=== PATIENT | female | born 1975 | race Caucasian/White ===

== ENCOUNTER 2016-05-05 16:49 | Inpatient (IN) | payer OTHER ==
[2016-05-05] MEDS ORDERED: Dinoprostone* 10 MG VAG.SUPP VAGINAL ONE (18:00)
[2016-05-06] MEDS ORDERED: Oxytocin in LR* 20 UNITS/1,000 ML BAG IVPB SCH (10:00)
[2016-05-06 10:44] LABS: Hematocrit 37 % (35-47); Hemoglobin 12.8 g/dl (12.0-16.0); Mean Corpuscular HGB Conc 35 g/dl (31-36); Mean Corpuscular Hemoglobin 34 pg (27-31); Mean Corpuscular Volume 97 fL (80-97); Mean Platelet Volume 8 um3 (7.4-10.4); Red Cell Distribution Width 14 % (10.5-15); White Blood Count 5.9 10^3/ul (3.5-10.8)
--- NOTE | 2016-05-06 15:58 | PTEDU ---
Patient Name: ABBY MONTERO DAVE MONTEROER selected video: Never Ever Shake a Baby to view on 05/06/2016 at 3:57:26 PM [id number]
[2016-05-07] MEDS ORDERED: fentaNYL* 50 MCG/ML 2 ML VIAL (100 MCG VIAL) ONE ×4 (05:41→17:35)
[2016-05-07] MEDS ORDERED: OBEPIDURAL* 250 ML ONE (05:42)
[2016-05-07] MEDS ORDERED: Sodium Citrate/Citric Acid* 15 ML UDC PO PRN (06:32)
[2016-05-07] MEDS ORDERED: Famotidine TAB* 20 MG PO PRN (06:32)
[2016-05-07] MEDS ORDERED: Phenylephrine IV* 40 MCG/ML 10 ML SYRINGE IV PUSH PRN ×2 (06:32)
[2016-05-07] MEDS ORDERED: OBEPIDURAL* 250 ML EPIDURAL SCH (07:00)
[2016-05-07] MEDS ORDERED: Bupivacaine 0.25% SDV* 30 ML ONE (12:10)
[2016-05-07] MEDS ORDERED: HYDROmorphone* 1 MG/ML 1 ML SYR ONE (12:11)
[2016-05-07] MEDS ORDERED: Ondansetron INJ* 2 MG/ML VIAL ONE (14:13)
[2016-05-07] MEDS: Ondansetron INJ* 2 MG/ML VIAL IV ONE ×2 (14:14→18:22)
[2016-05-07] MEDS ORDERED: D5LR 1000 ML BAG* 1,000 ML IV SCH (17:00)
[2016-05-07] MEDS ORDERED: Ondansetron INJ* 2 MG/ML VIAL IV ONE (18:20)
[2016-05-08] MEDS ORDERED: Witch Hazel PAD* JAR TOPICAL PRN (00:10)
[2016-05-08] MEDS ORDERED: Dibucaine 1% 28.35 GM TUBE PR PRN (00:10)
[2016-05-08] MEDS ORDERED: oxyCODONE/Acetamin 5/325 MG* TAB PO PRN (00:10)
[2016-05-08] MEDS ORDERED: Measles, Mumps,Rubella VACC* 0.5 ML/VIAL SUBCUT ONE (00:10)
[2016-05-08] MEDS ORDERED: Acetaminophen TAB* 325 MG PO PRN (00:10)
[2016-05-08] MEDS ORDERED: Glycerin ADULT SUPP PR PRN (00:10)
[2016-05-08] MEDS: Ibuprofen TAB* 600 MG PO PRN ×3 (03:17→19:56)
[2016-05-08] MEDS ORDERED: Simethicone CHEW TAB* 80 MG PO SCH (08:30)
[2016-05-08] MEDS: Docusate CAP* 100 MG PO SCH ×3 (10:47→19:56)
[2016-05-09] MEDS: Ibuprofen TAB* 600 MG PO PRN ×4 (02:01→22:12)
[2016-05-09 08:50] LABS: Hematocrit 29 % (35-47); Mean Corpuscular HGB Conc 35 g/dl (31-36); Mean Corpuscular Hemoglobin 34 pg (27-31); Mean Corpuscular Volume 98 fL (80-97); Mean Platelet Volume 8 um3 (7.4-10.4); Red Blood Count 2.96 10^6/ul (4.0-5.4); Red Cell Distribution Width 14 % (10.5-15); White Blood Count 10.1 10^3/ul (3.5-10.8)
[2016-05-09] MEDS: Docusate CAP* 100 MG PO SCH ×3 (08:57→22:12)
[2016-05-09] MEDS: Ferrous Gluconate TAB* 324 MG TAB PO SCH ×2 (09:47→22:12)
[2016-05-10] MEDS: Ibuprofen TAB* 600 MG PO PRN (07:35)
[2016-05-10] MEDS: Docusate CAP* 100 MG PO SCH (07:35)
[2016-05-10 07:41] VITALS: BP 136/69
[2016-05-10] MEDS: Ferrous Gluconate TAB* 324 MG TAB PO SCH (14:50)
== END 2016-05-10 13:29 | disposition home or self-care (01) | DRG 775 ==
LOC: MCHOBOUT 16:49 → MCHOB 17:16
PROVIDERS: ADMIT Nurse Practitioner; ATTEND Nurse Practitioner
PROC: 10E0XZZ Delivery of Products of Conception, External Approach (ICD-10-PCS; principal; 2016-05-07)
PROC: 0DQR0ZZ Repair Anal Sphincter, Open Approach (ICD-10-PCS; 2016-05-07)
PROC: 0KQM0ZZ Repair Perineum Muscle, Open Approach (ICD-10-PCS; 2016-05-07)
PROC: 10907ZC Drainage of Amniotic Fluid, Therapeutic from Products of Conception, Via Natural or Artificial Opening (ICD-10-PCS; 2016-05-07)
PROC: 10D07Z6 Extraction of Products of Conception, Vacuum, Via Natural or Artificial Opening (ICD-10-PCS; 2016-05-07)
DX: O70.20 Third degree perineal laceration during delivery, unspecified (principal); Z37.0 Single live birth; O48.0 Post-term pregnancy; O09.513 Supervision of elderly primigravida, third trimester; O33.8 Maternal care for disproportion of other origin; O99.820 Streptococcus B carrier state complicating pregnancy; Z3A.42 42 weeks gestation of pregnancy
CPT/HCPCS: 36415; 85025; 86850; 86900; 86901; A9270-GY; J1170; J2405; J3010

== ENCOUNTER 2017-09-26 14:19 | Emergency (ER) | payer OTHER ==
[2017-09-26 14:44] VITALS: BP 97/55
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
[2017-09-26] MEDS ORDERED: Rabies VIRUS VACCINE (Imovax)* 2.5 UNIT/ML 1 ML IM ONE (15:13)
[2017-09-26] MEDS ORDERED: Rabies Immune Globulin 10 ML* 150 UNIT/ML VIAL IM ONE (15:13)
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
== END 2017-09-26 15:55 | disposition home or self-care (01) ==
LOC: UCEAST 14:19
DX: Z20.3 Contact with and (suspected) exposure to rabies (principal); Z23 Encounter for immunization; Z88.2 Allergy status to sulfonamides
CPT/HCPCS: 90375; 90471; 96372; 99211; G0463